=== PATIENT | male | born 1980 | race Two or more races ===

== ENCOUNTER 2017-12-26 16:07 | Outpatient (CLI) | payer OTHER ==
[~2017-12-26 16:07] MED LIST: PERCOCET 5/321 UDTAB PO; POLY119PG PO; PROTONIX40 MG PO
== END 2017-12-26 16:21 | disposition home or self-care (01) ==
LOC: RAD 16:07
DX: M79.642 Pain in left hand (principal)

== ENCOUNTER 2018-08-21 18:45 | Emergency (ER) | payer OTHER ==
[~2018-08-21] VITALS: Ht 182.9 cm; Wt 83.9 kg
[2018-08-21] MEDS ORDERED: PRILOSEC OTC20 MG (18:57)
== END 2018-08-22 00:12 | disposition home or self-care (01) ==
LOC: ER 18:45
DX: J10.1 Influenza due to other identified influenza virus with other respiratory manifestations (principal); J06.9 Acute upper respiratory infection, unspecified

== ENCOUNTER 2019-02-04 11:38 | Emergency (ER) | payer OTHER ==
[~2019-02-04] VITALS: Ht 182.9 cm; Wt 74.8 kg
[~2019-02-04 11:38] MED LIST changes: +PRILOSEC OTC20 MG
== END 2019-02-04 21:00 | disposition home or self-care (01) ==
LOC: ER 11:38
DX: S40.871A Other superficial bite of right upper arm, initial encounter (principal); W57.XXXA Bitten or stung by nonvenomous insect and other nonvenomous arthropods, initial encounter; Y93.89 Activity, other specified; Y92.89 Other specified places as the place of occurrence of the external cause; Y99.8 Other external cause status

== ENCOUNTER 2020-10-30 08:06 | Day surgery (SDC) | payer OTHER | END 2020-10-30 15:00 | disposition home or self-care (01) | LOC: AMB-ENDOS 08:06 | PROVIDERS: ATTEND Colon & Rectal Surgery | DX: D12.3 Benign neoplasm of transverse colon (principal); D12.4 Benign neoplasm of descending colon; K64.1 Second degree hemorrhoids; Z20.822 Contact with and (suspected) exposure to COVID-19 ==